=== PATIENT | female | born 1990 | race African-American/Black ===

== ENCOUNTER 2017-09-13 12:45 | Emergency (ER) | payer OTHER ==
[2017-09-13 12:56] VITALS: BP 126/66; PULSE 82; TEMP 99.1; BMI 34.0
--- NOTE | 2017-09-13 13:42 | PDOC ---
History of Present Illness - General Chief Complaint: Ear Problem Stated Complaint: EAR PROBLEM Time Seen by Provider: 09/13/17 12:59 - History of Present Illness Initial Comments: 26-year-old female presents for evaluation of atraumatic left ear pain 1 day without any other associated symptoms 09/13/17 13:35 Past History - Past Medical History Allergies/Adverse Reactions: Allergies Allergy/AdvReac Type Severity Reaction Status Date / Time No Known Allergies Allergy Verified 09/13/17 12:54 Home Medications: Ambulatory Orders Ciprofloxacin HCl/Dexameth [Ciprodex Otic Suspension] 5 drop AU BID #1 bottle Anemia: Yes COPD: No DVT: No - Immunization History Immunization Up to Date: Yes - Suicide/Smoking/Psychosocial Hx Smoking Status: No Smoking History: Never smoked Number of Cigarettes Smoked Daily: 0 Information on smoking cessation initiated: No Hx Alcohol Use: Yes (occasion) Drug/Substance Use Hx: No Substance Use Type: None Review of Systems - Review of Systems Constitutional: No: Chills, Diaphoresis, Fever, Malaise, Night Sweats HEENTM: Yes: Ear Pain. No: Eye Pain, Blurred Vision, Ear Discharge, Nose Pain, Nose Congestion, Tinnitus, Hearing Loss Respiratory: No: Cough, Shortness of Breath, SOB with Exertion, SOB at Rest, Stridor, Wheezing, Productive cough, Hemoptysis All Other Systems: Reviewed and Negative *Physical Exam - Vital Signs Last Vital Signs Temp Pulse Resp BP Pulse Ox 99.1 F 82 18 126/66 100 09/13/17 12:54 09/13/17 12:54 09/13/17 12:54 09/13/17 12:54 09/13/17 12:54 - Physical Exam Comments: General Appearance: Well-developed, well-nourished A&O 3 NAD Head: NC/AT Eyes: PERRL Ears: External auditory canals is normal on the Right There is purulent discharge on the left in the canal there is mild injection to the L TM without retraction R TM normal normal and clear;hearing is grossly intact Nose: Normal no discharge Throat and Oral cavity: Pharynx is clear without inflammation swelling exudate no lesions teeth and gingiva are normal Neck: Supple nontender without lymphadenopathy masses or thyromegaly Cardiac: S1 and S2 without murmurs no peripheral edema cyanosis or pallor; extremities are warm and well-perfused; capillary refill is less than 2 seconds without carotid bruits Lungs: CTA and Percussion no rales or rhonchi or wheezing breath sounds are full bilaterally Musculoskeletal; Adequately aligned spine range of motion intact to spine and extremities Neurologic: Cranial nerves II-XII are grossly intact strength and sensation Skin: Normal color and temperature normal texture turgor no lesions or eruptions 09/13/17 13:36 *DC/Admit/Observation/Transfer Diagnosis at time of Disposition: Otitis externa - Discharge Dispostion Disposition: HOME Condition at time of disposition: Stable Decision to Admit order: No - Referrals Referrals: Krunal Collazo [Primary Care Provider] - Slade Robles MD [Staff Physician] - - Patient Instructions Printed Discharge Instructions: Otitis Externa, DI for Otitis Externa Additional Instructions: Return to emergency room if symptoms go on resolve though worsen prior to follow -up with ENT doctor finish all antibiotics as prescribed - Post Discharge Activity
== END 2017-09-13 13:51 | disposition home or self-care (01) ==
LOC: JERFT 12:45
DX: H60.592 Other noninfective acute otitis externa, left ear (principal)
CPT/HCPCS: 99281-25

== ENCOUNTER 2017-09-17 05:25 | Emergency (ER) | payer OTHER ==
[2017-09-17 05:57] VITALS: BP 117/78; PULSE 76; TEMP 98.3; BMI 32.9
--- NOTE | 2017-09-17 06:17 | PDOC ---
History of Present Illness - General Chief Complaint: Head/Neck problem Stated Complaint: FEELING SICK Time Seen by Provider: 09/17/17 05:49 History Source: Patient Exam Limitations: No Limitations - History of Present Illness Initial Comments: 09/17/17 06:20 Best Contact:[phone] PCP:Ddr. Krunal Dodd/Vadim Pmhx: N/A Pshx:N/A Allergies: NKDA LMP: 09/09/2017 26-year-old female presents to the ER with her mother with multiple complaints. Patient states she was seen in the emergency department on September 13 for a left otitis media and is currently being treated with Ciprodex which is making her feel better. Approximately 3-4 days ago, patient was having pain to the right ribs just underneath her right breast and she attributes it to a possible muscle strain. About 2 days ago, she believes she slept wrong and feels a strain to the right side of her neck. Patient states last evening, the pain to her right ribs has increased on deep inspiration. Patient states she is able to stretch but it didn't seem to work. Pain is described as 6/10 dull nonradiating intermittent discomfort. The pain is exacerbated on deep inspiration and touch and alleviated minimally at rest. Patient denies fever, chills, nausea/vomiting , dizziness, headache, lightheadedness, rhinorrhea, nasal congestion, sore throat, facial pains, neck stiffness, midline neck pain, back pains, chest pain , shortness of breath, abdominal pains, flank pains, urinary symptoms: Frequency /urgency, hesitancy, hematuria, extremity numbness or tingling sensation. Past History - Past Medical History Allergies/Adverse Reactions: Allergies Allergy/AdvReac Type Severity Reaction Status Date / Time No Known Allergies Allergy Verified 09/17/17 05:29 Home Medications: Ambulatory Orders Ciprofloxacin HCl/Dexameth [Ciprodex Otic Suspension] 5 drop AU BID #1 bottle Cyclobenzaprine HCl [Flexeril -] 10 mg PO HS #10 tablet 09/17/17 Ibuprofen 800 mg PO TID #30 tablet 09/17/17 Anemia: Yes COPD: No DVT: No - Immunization History Immunization Up to Date: Yes - Suicide/Smoking/Psychosocial Hx Smoking Status: No Smoking History: Never smoked Have you smoked in the past 12 months: No Number of Cigarettes Smoked Daily: 0 Information on smoking cessation initiated: No Hx Alcohol Use: Yes (Occasionally) Drug/Substance Use Hx: No Substance Use Type: None Review of Systems - Review of Systems Able to Perform ROS?: Yes Comments:: 09/17/17 06:25 CONSTITUTIONAL: Absent: fever, chills, diaphoresis, generalized weakness, malaise, loss of appetite HEENT: Absent: rhinorrhea, nasal congestion, throat pain, throat swelling, difficulty swallowing, mouth swelling, ear pain, eye pain, visual Changes CARDIOVASCULAR: Absent: chest pain, loss of consciousness, palpitations, irregular heart rate, peripheral edema RESPIRATORY: +pain under right breast Absent: cough, shortness of breath, dyspnea with exertion, orthopnea, wheezing, stridor, hemoptysis GASTROINTESTINAL: Absent: abdominal pain, abdominal distension, nausea, vomiting, diarrhea, constipation, melena, hematochezia GENITOURINARY: Absent: dysuria, frequency, urgency, hesitancy, hematuria, flank pain, genital pain MUSCULOSKELETAL: +Right neck pain Absent: myalgia, arthralgia, joint swelling SKIN: Absent: rash, itching, pallor HEMATOLOGIC/IMMUNOLOGIC: Absent: easy bleeding, easy bruising, lymphadenopathy, frequent infections ENDOCRINE: Absent: unexplained weight gain, unexplained weight loss, heat intolerance, cold intolerance NEUROLOGIC: Absent: headache, focal weakness or paresthesias, dizziness, unsteady gait, seizure, mental status changes, bladder or bowel incontinence PSYCHIATRIC: Absent: anxiety, depression, suicidal or homicidal ideation, hallucinations. Is the patient limited Nepali proficient: No *Physical Exam - Vital Signs Last Vital Signs Temp Pulse Resp BP Pulse Ox 98.3 F 76 16 117/78 100 09/17/17 05:26 09/17/17 05:26 09/17/17 05:26 09/17/17 05:26 09/17/17 05:26 ED Treatment Course - RADIOLOGY Radiograph Interpretation: 09/17/17 06:26 CXR 2v *DC/Admit/Observation/Transfer Diagnosis at time of Disposition: Atypical chest pain, Neck pain - Discharge Dispostion Disposition: HOME Condition at time of disposition: Stable - Prescriptions Prescriptions: Cyclobenzaprine HCl [Flexeril -] 10 mg PO HS #10 tablet Ibuprofen 800 mg PO TID #30 tablet - Referrals Referrals: Shamir Espinoza MD [Staff Physician] - - Patient Instructions Printed Discharge Instructions: DI for Atypical Chest Pain, DI for Neck Pain Additional Instructions: Your x-ray and EKG were normal today. You most likely have a muscle strain. Please take the ibuprofen 800 mg every 8 hours for pain this week. Take the medication with food. Please take the Flexeril before he go to bed. Do not drive after taking this medication as it may make you sleepy. Do not mix with alcohol. Warm compresses to the areas of pain may help. Please follow-up with her primary care doctor this week. Return to emergency department if you have worsening pain, difficulty breathing , shortness of breath, or have any changes in your symptoms. - Post Discharge Activity Forms/Work/School Notes: Back to Work, Parent(s) Back to Work Note Progress Note - Progress Note Progress Note: 0701hrs: Signed out to HALIE Cedeño
[2017-09-17] MEDS ORDERED: KETOROLAC TROMETHAMINE 60 MG/2 ML VIAL IM ONE (06:34)
[2017-09-17] MEDS ORDERED: KETOROLAC TROMETHAMINE 60 MG/2 ML VIAL ONE (06:38)
--- NOTE | 2017-09-17 07:06 | PDOC ---
*Physical Exam - Vital Signs Last Vital Signs Temp Pulse Resp BP Pulse Ox 98.3 F 76 16 117/78 100 09/17/17 05:26 09/17/17 05:26 09/17/17 05:26 09/17/17 05:26 09/17/17 05:26 - Physical Exam General Appearance: Yes: Nourished, Appropriately Dressed, Other (Sitting on exam bed, breathing easily. AAOx3). No: Apparent Distress HEENT: positive: EOMI, XOCHITL, Normal ENT Inspection, Symmetrical, TMs Normal Neck: positive: Supple, Other (TTP of the R paraspinous muscles of the neck.) Respiratory/Chest: positive: Lungs Clear, Normal Breath Sounds. negative: Accessory Muscle Use, Rhonchi, Stridor, Wheezing Cardiovascular: positive: Regular Rhythm, Regular Rate, S1, S2 (present), Other (TTP of the 6-7th ribs under the R breast.). negative: Murmur Extremity: positive: Normal Capillary Refill, Normal Inspection, Normal Range of Motion Integumentary: positive: Normal Color, Dry, Warm Neurologic: positive: machine learning intern II-XII NML intact, Fully Oriented, Alert, Normal Mood/ Affect, Normal Response, Motor Strength 5/ ED Treatment Course - ADDITIONAL ORDERS Additional order review: Laboratory Results 09/17/17 06:16 Urine HCG, Qual Negative - Medications Given in the ED: ED Medications Discontinued Medications Generic Name Dose Route Start Last Admin Trade Name Freq PRN Reason Stop Dose Admin Ketorolac Tromethamine 60 mg 09/17/17 06:34 09/17/17 06:41 Toradol Injection - IM 09/17/17 06:35 60 mg ONCE ONE Administration Medical Decision Making - Medical Decision Making 09/17/17 07:42 Sign out received from Oliva AMBROSE. Patient is a 26-year-old female with tenderness to palpation along her right rib cage. Chest x-ray ordered, EKG ordered. Toradol given with some relief in the emergency department. Reevaluate once EKG and chest x-ray are read. 09/17/17 08:12 EKG shows a rate of 72 bpm, normal sinus rhythm, normal axis normal intervals. No acute ST-T wave changes. Chest x-ray shows no acute pathology at this time. No rib fx. Pain is exacerbated with deep breath and rotational movements. Pain decreased after Toradol injection. Most likely muscular issue. We'll discharge patient home at this time with Flexeril and ibuprofen. Return precautions given. Patient instructed to follow-up with her primary care provider. Patient is comfortable with discharge planning, and all questions were answered. *DC/Admit/Observation/Transfer Diagnosis at time of Disposition: Atypical chest pain, Neck pain - Discharge Dispostion Disposition: HOME Condition at time of disposition: Stable Decision to Admit order: No - Prescriptions Prescriptions: Cyclobenzaprine HCl [Flexeril -] 10 mg PO HS #10 tablet Ibuprofen 800 mg PO TID #30 tablet - Referrals Referrals: Shamir Espinoza MD [Staff Physician] - - Patient Instructions Printed Discharge Instructions: DI for Atypical Chest Pain, DI for Neck Pain Additional Instructions: Your x-ray and EKG were normal today. You most likely have a muscle strain. Please take the ibuprofen 800 mg every 8 hours for pain this week. Take the medication with food. Please take the Flexeril before he go to bed. Do not drive after taking this medication as it may make you sleepy. Do not mix with alcohol. Warm compresses to the areas of pain may help. Please follow-up with her primary care doctor this week. Return to emergency department if you have worsening pain, difficulty breathing , shortness of breath, or have any changes in your symptoms. - Post Discharge Activity Forms/Work/School Notes: Back to Work, Parent(s) Back to Work Note
--- NOTE | 2017-09-17 09:21 | EKG ---
Test Reason : Blood Pressure : / mmHG Vent. Rate : 069 BPM Atrial Rate : 069 BPM P-R Int : 144 ms QRS Dur : 078 ms QT Int : 382 ms P-R-T Axes : 043 043 024 degrees QTc Int : 409 ms NORMAL SINUS RHYTHM NORMAL ECG WHEN COMPARED WITH ECG OF 02-AUG-2012 02:55, NO SIGNIFICANT CHANGE WAS FOUND Confirmed by DAYNA DONALD MD ([id number]) on 09/17/2017 9:21:21 AM Referred By: Confirmed By:DAYNA DONALD MD
== END 2017-09-17 08:42 | disposition home or self-care (01) ==
LOC: JER 05:25
PROC: 3E0233Z Introduction of Anti-inflammatory into Muscle, Percutaneous Approach (ICD-10-PCS; principal; 2017-09-17)
DX: R07.89 Other chest pain (principal); M54.2 Cervicalgia
CPT/HCPCS: 71046-TC-FY; 84703; 93005; 93010; 96372; 99282-25